=== PATIENT | female | born 1980 ===

== ENCOUNTER → 2024-02-10 09:19 | Outpatient (REF) | payer BC, SELFPAY ==
[2024-02-10 14:06] LABS: Glycohemoglobin (HgbA1c) 5.7 % (4.0-5.6)
== END ==
LOC: CLAB 09:19
PROVIDERS: ATTENDING PHYSICIAN Physician Assistant Medical
DX: R73.09 Other abnormal glucose (principal)
CPT/HCPCS: 36415; 83036

== ENCOUNTER → 2024-03-20 11:50 | Outpatient (REF) | payer BC, SELFPAY | LOC: RAD 11:50 | PROVIDERS: ATTENDING PHYSICIAN Physician Assistant Medical | DX: M54.42 Lumbago with sciatica, left side (principal) | CPT/HCPCS: 72110 ==

== ENCOUNTER → 2024-04-06 07:31 | Outpatient (REF) | payer BC, SELFPAY | LOC: WDC 07:31 | PROVIDERS: ATTENDING PHYSICIAN Physician Assistant Medical | DX: Z12.31 Encounter for screening mammogram for malignant neoplasm of breast (principal) | CPT/HCPCS: 77063; 77067 ==

== ENCOUNTER → 2024-04-16 06:51 | Outpatient (REF) | payer BC, SELFPAY | LOC: MRI 06:51 | PROVIDERS: ATTENDING PHYSICIAN Physician Assistant Medical | DX: M54.42 Lumbago with sciatica, left side (principal) | CPT/HCPCS: 72148 ==

== ENCOUNTER → 2024-06-08 18:40 | Outpatient (REF) | payer BC, SELFPAY ==
[2024-06-08 19:18] LABS: ALT (SGPT) 18 U/L (0-35); AST (SGOT) 22 U/L (14-36); Albumin 4.4 g/dl (3.5-5.0); Alkaline Phosphatase 63 U/L (38-126); Blood Urea Nitrogen 17 mg/dl (7-17); Calcium 9.7 mg/dl (8.4-10.2); Carbon Dioxide 24 mmol/L (22-30); Chloride 102 mmol/L (98-107); Glucose 90 mg/dl (70-99); Potassium 4.6 mmol/L (3.5-5.1); Sodium 136 mmol/L (135-145); Total Bilirubin 0.5 mg/dl (0.2-1.3); Total Protein 6.7 g/dl (6.3-8.2); eGFR > 60.00
[2024-06-09 09:07] LABS: Glycohemoglobin (HgbA1c) 5.4 % (4.0-5.6)
== END ==
LOC: CLAB 18:40
PROVIDERS: ATTENDING PHYSICIAN Physician Assistant Medical
DX: E74.39 Other disorders of intestinal carbohydrate absorption (principal)
CPT/HCPCS: 36415; 80053; 83036

== ENCOUNTER → 2024-07-02 11:41 | Outpatient (REF) | payer BC, SELFPAY ==
[2024-07-02 12:33] LABS: ALT (SGPT) 16 U/L (0-35); AST (SGOT) 20 U/L (14-36); Albumin 4.4 g/dl (3.5-5.0); Alkaline Phosphatase 60 U/L (38-126); Blood Urea Nitrogen 18 mg/dl (7-17); Calcium 9.3 mg/dl (8.4-10.2); Carbon Dioxide 29 mmol/L (22-30); Chloride 101 mmol/L (98-107); Glucose 88 mg/dl (70-99); HDL Cholesterol 58 mg/dl; LDL Cholesterol, Calculated 95 mg/dl; Potassium 4.3 mmol/L (3.5-5.1); Sodium 137 mmol/L (135-145); Total Bilirubin 0.5 mg/dl (0.2-1.3); Total Cholesterol 161 mg/dl (50-199); Total Protein 6.8 g/dl (6.3-8.2); Triglyceride 42 mg/dl (10-149); Very Low Density Lipoprotein 8 mg/dl (0-30); eGFR > 60.00
== END ==
LOC: REG 11:41
PROVIDERS: ATTENDING PHYSICIAN Physician Assistant Medical
DX: Z00.00 Encounter for general adult medical examination without abnormal findings (principal)
CPT/HCPCS: 36415; 80053; 80061

== ENCOUNTER → 2024-12-17 10:29 | Outpatient (REF) | payer BC, SELFPAY ==
[2024-12-17 14:23] LABS: Glycohemoglobin (HgbA1c) 5.4 % (4.0-5.6)
== END ==
LOC: CLAB 10:29
PROVIDERS: ATTENDING PHYSICIAN Physician Assistant Medical
DX: R73.09 Other abnormal glucose (principal)
CPT/HCPCS: 36415; 83036

== ENCOUNTER → 2025-02-24 09:25 | Outpatient (REF) | payer BC, SELFPAY ==
[2025-02-28 04:21] LABS: HPV, High Risk Not Detected; HPV, High Risk Source Cervical
== END ==
LOC: CPAP 09:25
PROVIDERS: ATTENDING PHYSICIAN Obstetrics & Gynecology Gynecology
DX: Z01.419 Encounter for gynecological examination (general) (routine) without abnormal findings (principal)
CPT/HCPCS: 87624

== ENCOUNTER 2025-03-18 05:52 | Outpatient (RCR) | payer BC, SELFPAY | END 2025-03-18 23:59 | disposition home or self-care (01) | LOC: RPT 05:52 | PROVIDERS: ATTENDING PHYSICIAN Physician Assistant Medical | DX: M79.12 Myalgia of auxiliary muscles, head and neck (principal); R29.3 Abnormal posture; Z73.6 Limitation of activities due to disability | CPT/HCPCS: 97112; 97162 ==

== ENCOUNTER 2025-04-22 09:00 | Outpatient (RCR) | payer BC, SELFPAY | END 2025-04-22 23:59 | disposition home or self-care (01) | LOC: RPT 09:00 | PROVIDERS: ATTENDING PHYSICIAN Physician Assistant Medical | DX: M79.12 Myalgia of auxiliary muscles, head and neck (principal); R29.3 Abnormal posture; Z73.6 Limitation of activities due to disability | CPT/HCPCS: 97010; 97110; 97112; 97140 ==

== ENCOUNTER → 2025-05-17 12:18 | Outpatient (REF) | payer BC, SELFPAY | LOC: WDC 12:18 | PROVIDERS: ATTENDING PHYSICIAN Physician Assistant Medical | DX: Z12.31 Encounter for screening mammogram for malignant neoplasm of breast (principal) | CPT/HCPCS: 77063; 77067 ==

== ENCOUNTER 2025-05-20 10:59 | Outpatient (RCR) | payer BC, SELFPAY | END 2025-05-20 23:59 | disposition home or self-care (01) | LOC: RPT 10:59 | PROVIDERS: ATTENDING PHYSICIAN Physician Assistant Medical | DX: M79.12 Myalgia of auxiliary muscles, head and neck (principal); R29.3 Abnormal posture; Z73.6 Limitation of activities due to disability | CPT/HCPCS: 97010; 97110; 97112; 97140 ==

== ENCOUNTER 2025-05-27 11:23 | Outpatient (RCR) | payer BC, SELFPAY | END 2025-05-27 23:59 | disposition home or self-care (01) | LOC: RPT 11:23 | PROVIDERS: ATTENDING PHYSICIAN Physician Assistant Medical | DX: M79.12 Myalgia of auxiliary muscles, head and neck (principal); R29.3 Abnormal posture; Z73.6 Limitation of activities due to disability | CPT/HCPCS: 97110; 97112; 97140 ==

== ENCOUNTER → 2025-08-10 14:30 | Outpatient (REF) | payer BC, SELFPAY ==
[2025-08-10 16:41] LABS: Hematocrit 39.1 % (37.0-47.0); Hemoglobin 12.4 g/dL (12.0-16.0); Mean Corp Hgb Conc. 31.7 g/dL (33.0-37.0); Mean Corpuscular Volume 88.5 fL (81.0-99.0); Nucleated Red Blood Cells % 0 %; Platelet Count 236 10^3/uL (130-400); Red Cell Dist. Width 14.2 % (11.5-14.5)
[2025-08-10 16:56] LABS: ALT (SGPT) 25 U/L (0-35); AST (SGOT) 24 U/L (14-36); Albumin 4.1 g/dl (3.5-5.0); Alkaline Phosphatase 52 U/L (38-126); Blood Urea Nitrogen 18 mg/dl (7-17); Calcium 8.7 mg/dl (8.4-10.2); Carbon Dioxide 27 mmol/L (22-30); Chloride 102 mmol/L (98-107); Glucose 86 mg/dl (70-99); HDL Cholesterol 54 mg/dl; LDL Cholesterol, Calculated 85 mg/dl; Potassium 4.2 mmol/L (3.5-5.1); Sodium 135 mmol/L (135-145); Total Protein 6.4 g/dl (6.3-8.2); Very Low Density Lipoprotein 9 mg/dl (0-30); eGFR > 60.00
[2025-08-11 08:16] LABS: Glycohemoglobin (HgbA1c) 5.2 % (4.0-5.6)
== END ==
LOC: CLAB 14:30
PROVIDERS: ATTENDING PHYSICIAN Physician Assistant Medical
DX: Z00.00 Encounter for general adult medical examination without abnormal findings (principal); R73.09 Other abnormal glucose
CPT/HCPCS: 36415; 80053; 80061; 83036; 85025